=== PATIENT | female | born 1970 | race Two or more races ===

== ENCOUNTER 2018-10-05 17:55 | Emergency (ER) | payer BC ==
[~2018-10-05] VITALS: Ht 167.6 cm; Wt 95.0 kg
[2018-10-05] MEDS ORDERED: IPRATROPIUM BROMIDE (0.02%) 0.5MG/2.5ML NEB HHN STA (20:34)
[2018-10-05] MEDS ORDERED: ALBUTEROL (0.083%) 2.5MG/3ML NEB HHN STA (20:34)
[2018-10-05] MEDS ORDERED: PREDNISONE 20MG TABLET PO STA (20:34)
[2018-10-05 21:51] VITALS: BP 185/90
== END 2018-10-05 21:52 | disposition home or self-care (01) ==
LOC: ER 17:55
DX: J45.901 Unspecified asthma with (acute) exacerbation (principal); I10 Essential (primary) hypertension; F17.210 Nicotine dependence, cigarettes, uncomplicated; E66.01 Morbid (severe) obesity due to excess calories; Z68.33 Body mass index [BMI] 33.0-33.9, adult; Z90.49 Acquired absence of other specified parts of digestive tract; Z88.3 Allergy status to other anti-infective agents
CPT/HCPCS: 71045; 94644; 99285; J7512; J7611